=== PATIENT | male | born 2000 | race African-American/Black ===

== ENCOUNTER 2024-11-11 22:30 | Emergency (ER) | payer MEDICAID ==
[~2024-11-11] VITALS: Ht 182.9 cm; Wt 79.9 kg
[2024-11-11 22:46] VITALS: O2SAT 99
[2024-11-11] MEDS: KETOROLAC 15MG/ML VIAL IM ONE (23:00)
[2024-11-12] MEDS: ACETAMINOPHEN 325MG TABLET PO ONE (01:30)
[2024-11-12] MEDS ORDERED: NAPR-1176 MT (01:41)
[2024-11-12 02:44] VITALS: BP 138/89; PULSE 88; RESP 16; TEMP 37.11408; O2SAT 99
== END 2024-11-12 04:22 | disposition home or self-care (01) ==
LOC: ER 22:30
DX: S62.303A Unspecified fracture of third metacarpal bone, left hand, initial encounter for closed fracture (principal); W22.01XA Walked into wall, initial encounter; Y93.89 Activity, other specified; Y92.89 Other specified places as the place of occurrence of the external cause; Y99.8 Other external cause status; Z79.1 Long term (current) use of non-steroidal anti-inflammatories (NSAID); Z98.890 Other specified postprocedural states
CPT/HCPCS: 29125; 73130; 99283